=== PATIENT | male | born 1995 | race Hispanic/Latino ===

== ENCOUNTER 2018-01-22 11:46 | Emergency (ER) | payer SELFPAY | END 2018-01-22 12:07 | LOC: NAV ERS 11:46 | DX: Z04.1 Encounter for examination and observation following transport accident (principal); V43.52XA Car driver injured in collision with other type car in traffic accident, initial encounter; F17.210 Nicotine dependence, cigarettes, uncomplicated | CPT/HCPCS: 99282 ==